=== PATIENT | female | born 1975 | race Caucasian/White ===

== ENCOUNTER 2022-04-07 19:10 | Inpatient (IN) ==
[2022-04-07] MEDS ORDERED: KETOROLAC 30 MG/1 ML VIAL IV STA (20:09)
[2022-04-07 20:46] LABS: Basophils # 0.1 10*3/uL (0.0-0.2); Basophils % 0.7 % (0.0-0.8); Eosinophils # 0.5 10*3/uL (0.0-0.87); Eosinophils % 4.6 % (0.00-10.9); Hematocrit 36.8 VOL% (35.7-47.0); Hemoglobin 11.3 GM/DL (12.0-16.0); Immature Granulocytes % 1.8 %; Immature Granulocytes Absolute 0.17 #; Lymphocytes # 2.2 10*3/uL (1.4-4.0); Lymphocytes % 22.7 % (21.3-54.2); Mean Corpuscular HGB Conc 30.7 GM/DL (32-36); Mean Corpuscular Volume 85.8 FL (87-102); Mean Platelet Volume 12.6 FL (9.6-12.0); Monocytes # 0.7 10*3/uL (0.11-0.8); Monocytes % 7.2 % (1.7-12.7); Platelet Count 194 T/CUMM (130-400); Red Blood Count 4.29 MC/CUMM (3.8-5.5); Red Cell Distribution Width 18.9 % (9.3-17.3); White Blood Count 9.7 T/CUMM (4-12)
[2022-04-07 21:12] LABS: Alanine Aminotransferase 45 U/L (13-56); Albumin 3.2 G/DL (3.4-5.0); Alkaline Phosphatase 68 U/L (45-117); Aspartate Amino Transferase 23 U/L (0-37); Bilirubin,Total < 0.39 MG/DL (0.20-1.00); Blood Urea Nitrogen 6 MG/DL (7-18); Calcium 9.4 MG/DL (8.5-10.1); Carbon Dioxide 26 MMOL/L (21-32); Chloride 112 MMOL/L (98-107); Glucose 115 MG/DL (74-106); Potassium 3.5 MMOL/L (3.5-5.1); Sodium 143 MMOL/L (136-145); Total Protein 7.1 G/DL (6.4-8.2)
[2022-04-07] MEDS ORDERED: MORPHINE 2 MG/1 ML SYRINGE IV PRN (22:18)
[2022-04-07] MEDS: DEXTROSE 5% NACL 0.45% 1,000 ML IV SCH (23:38)
[2022-04-08 05:42] LABS: Basophils # 0.1 10*3/uL (0.0-0.2); Basophils % 0.9 % (0.0-0.8); Eosinophils # 0.4 10*3/uL (0.0-0.87); Eosinophils % 4.8 % (0.00-10.9); Hematocrit 34.3 VOL% (35.7-47.0); Hemoglobin 10.3 GM/DL (12.0-16.0); Immature Granulocytes % 2.2 %; Immature Granulocytes Absolute 0.19 #; Lymphocytes # 2.2 10*3/uL (1.4-4.0); Lymphocytes % 25.7 % (21.3-54.2); Mean Corpuscular Volume 86.4 FL (87-102); Mean Platelet Volume 12.8 FL (9.6-12.0); Monocytes # 0.7 10*3/uL (0.11-0.8); Monocytes % 7.8 % (1.7-12.7); Neutrophils % 58.6 % (38.7-73.9); Platelet Count 172 T/CUMM (130-400); Red Blood Count 3.97 MC/CUMM (3.8-5.5); Red Cell Distribution Width 19.1 % (9.3-17.3); White Blood Count 8.6 T/CUMM (4-12)
[2022-04-08 06:02] LABS: Albumin 2.8 G/DL (3.4-5.0); Bilirubin,Total 0.4 MG/DL (0.20-1.00); Calcium 8.6 MG/DL (8.5-10.1); Osmolality,Calculated 285.8 MOS/KG (273-304); Potassium 3.7 MMOL/L (3.5-5.1)
[2022-04-08] MEDS: DEXTROSE 5% NACL 0.45% 1,000 ML IV SCH ×3 (07:57→18:16)
[2022-04-08] MEDS: PANTOPRAZOLE 40 MG VIAL IV SCH (08:43)
[2022-04-08] MEDS: KETOROLAC 15 MG/1 ML VIAL IV PRN (12:13)
[2022-04-09] MEDS: DEXTROSE 5% NACL 0.45% 1,000 ML IV SCH ×3 (00:08→18:31)
[2022-04-09] MEDS: KETOROLAC 15 MG/1 ML VIAL IV PRN ×2 (00:14→22:02)
[2022-04-09] MEDS ORDERED: fentaNYL 100 MCG/2 ML VIAL ONE (06:33)
[2022-04-09] MEDS ORDERED: TISSUE ADHESIVE 1 EACH APPLICATOR TOP ONE (06:35)
[2022-04-09] MEDS ORDERED: BUPIVACAINE MPF 0.25% 10 ML VIAL ONE (06:35)
[2022-04-09] MEDS ORDERED: LIDOCAINE 2%/EPI 20 ML VIAL ONE (06:35)
[2022-04-09] MEDS ORDERED: SUCCINYLCHOLINE 200 MG/10 ML VIAL ONE (07:21)
[2022-04-09] MEDS ORDERED: ceFAZolin 1,000 MG VIAL ONE (07:50)
[2022-04-09] MEDS ORDERED: ALBUTEROL 2.5 MG/3 ML NEB RESP TX ONE (08:05)
[2022-04-09] MEDS ORDERED: KETOROLAC 30 MG/1 ML VIAL ONE (08:12)
[2022-04-09] MEDS ORDERED: GLYCOPYRROLATE 0.4 MG/2 ML VIAL ONE (08:21)
[2022-04-09] MEDS ORDERED: NEOSTIGMINE 10 MG/10 ML VIAL ONE (08:21)
[2022-04-09] MEDS ORDERED: PROMETHAZINE INJ 25 MG in SODIUM CHLORIDE 0.9% 50 ML IV PRN (08:47)
[2022-04-09] MEDS ORDERED: ACETAMINOPHEN INJ 1,000 MG/100 ML VIAL IV ONE (08:48)
[2022-04-09] MEDS ORDERED: propofoL 200 MG/20 ML VIAL IV ONE (08:49)
[2022-04-09] MEDS ORDERED: ROCURONIUM 50 MG/5 ML VIAL IV ONE (08:49)
[2022-04-09] MEDS ORDERED: LIDOCAINE 2% 5 ML VIAL ONE (08:49)
[2022-04-09] MEDS ORDERED: DEXAMETHASONE 4 MG/1 ML VIAL ONE (08:49)
[2022-04-09] MEDS ORDERED: DESFLURANE 1 UNIT/15 MINUTE INH ONE (08:52)
[2022-04-09] MEDS: HYDROmorphone 1 MG/1 ML SYRINGE IV PRN ×4 (08:54→09:48)
[2022-04-09] MEDS: PROMETHAZINE 25 MG/1 ML VIAL IM PRN ×2 (08:56→12:56)
[2022-04-09] MEDS ORDERED: diphenhydrAMINE 50 MG/1 ML VIAL IV PRN (10:43)
[2022-04-09] MEDS ORDERED: QUEtiapine 25 MG TABLET PO SCH ×2 (11:00→21:00)
[2022-04-09] MEDS: GABAPENTIN 100 MG CAPSULE PO SCH ×2 (11:10→20:55)
[2022-04-09] MEDS: PANTOPRAZOLE 40 MG VIAL IV SCH (11:10)
[2022-04-09] MEDS: FERROUS SULFATE 325 MG TABLET PO SCH ×2 (11:10→20:55)
[2022-04-09] MEDS: SERTRALINE 100 MG TABLET PO SCH ×2 (11:11→20:55)
[2022-04-09] MEDS: ASCORBIC ACID 500 MG TABLET PO SCH ×2 (11:11→20:56)
[2022-04-09] MEDS: valACYclovir 500 MG TABLET PO SCH ×2 (14:13→20:56)
[2022-04-09] MEDS: traZODone 50 MG TABLET PO SCH (20:55)
[2022-04-09] MEDS: ROSUVASTATIN 20 MG TABLET PO SCH (20:55)
[2022-04-10] MEDS: DEXTROSE 5% NACL 0.45% 1,000 ML IV SCH ×3 (00:51→15:10)
[2022-04-10] MEDS: ASCORBIC ACID 500 MG TABLET PO SCH ×2 (08:31→20:31)
[2022-04-10] MEDS: GABAPENTIN 100 MG CAPSULE PO SCH ×2 (08:31→20:31)
[2022-04-10] MEDS: valACYclovir 500 MG TABLET PO SCH ×4 (08:31→20:31)
[2022-04-10] MEDS: SERTRALINE 100 MG TABLET PO SCH ×2 (08:31→20:31)
[2022-04-10] MEDS: FERROUS SULFATE 325 MG TABLET PO SCH ×2 (08:31→17:02)
[2022-04-10] MEDS: PANTOPRAZOLE 40 MG VIAL IV SCH (08:32)
[2022-04-10] MEDS: traZODone 50 MG TABLET PO SCH ×2 (20:32→23:29)
[2022-04-10] MEDS: ROSUVASTATIN 20 MG TABLET PO SCH (20:32)
[2022-04-10] MEDS: QUEtiapine 25 MG TABLET PO SCH (20:32)
[2022-04-10] MEDS: KETOROLAC 15 MG/1 ML VIAL IV PRN (21:00)
[2022-04-11] MEDS: DEXTROSE 5% NACL 0.45% 1,000 ML IV SCH ×3 (00:51→17:19)
[2022-04-11] MEDS: FERROUS SULFATE 325 MG TABLET PO SCH ×2 (08:20→17:19)
[2022-04-11] MEDS: GABAPENTIN 100 MG CAPSULE PO SCH ×2 (08:20→21:15)
[2022-04-11] MEDS: valACYclovir 500 MG TABLET PO SCH ×3 (08:20→21:14)
[2022-04-11] MEDS: SERTRALINE 100 MG TABLET PO SCH ×2 (08:21→21:14)
[2022-04-11] MEDS: ASCORBIC ACID 500 MG TABLET PO SCH ×2 (08:21→21:15)
[2022-04-11] MEDS: PANTOPRAZOLE 40 MG VIAL IV SCH (08:21)
[2022-04-11] MEDS ORDERED: ROSUVASTATIN 20 MG TABLET PO SCH (09:00)
[2022-04-11] MEDS: KETOROLAC 15 MG/1 ML VIAL IV PRN ×2 (13:50→22:15)
[2022-04-11] MEDS: ROSUVASTATIN 20 MG TABLET PO SCH (21:14)
[2022-04-11] MEDS: traZODone 50 MG TABLET PO SCH (21:14)
[2022-04-11] MEDS: QUEtiapine 25 MG TABLET PO SCH (21:15)
[2022-04-12] MEDS: DEXTROSE 5% NACL 0.45% 1,000 ML IV SCH (01:51)
[2022-04-12] MEDS: SERTRALINE 100 MG TABLET PO SCH (08:28)
[2022-04-12] MEDS: ASCORBIC ACID 500 MG TABLET PO SCH (08:28)
[2022-04-12] MEDS: GABAPENTIN 100 MG CAPSULE PO SCH (08:28)
[2022-04-12] MEDS: FERROUS SULFATE 325 MG TABLET PO SCH (08:28)
[2022-04-12] MEDS: KETOROLAC 15 MG/1 ML VIAL IV PRN (08:29)
[2022-04-12] MEDS: PANTOPRAZOLE 40 MG VIAL IV SCH (08:29)
[2022-04-12 12:28] VITALS: BP 127/76
== END 2022-04-12 14:10 | disposition home or self-care (01) | DRG 354 ==
LOC: N.EDINP 19:10 → N.ED 19:10 → N.3E 23:27
PROVIDERS: ADMIT Surgery; ATTEND Surgery